=== PATIENT | male | born 1985 ===

== ENCOUNTER 2020-11-05 14:21 | Emergency (ER) | payer MEDICAID ==
[~2020-11-05] VITALS: Ht 177.8 cm; Wt 65.8 kg
[2020-11-05] MEDS ORDERED: NOVOLOG INSULIN (14:43)
[2020-11-05] MEDS ORDERED: GABAPENTIN (14:43)
[2020-11-05] MEDS ORDERED: WELLBUTRIN (14:43)
[2020-11-05] MEDS ORDERED: SUBOXONE (14:43)
[2020-11-05] MEDS ORDERED: IV NS 1000 ML 1,000 ML IV ONE (14:45)
--- NOTE | 2020-11-05 15:00 | NUR ---
Pt is agitated and yelling out loud while lying in the gurney, security called and electronic security technician at bedside for 1:1 observation.
--- NOTE | 2020-11-05 15:11 | NUR ---
Cogentin 1mg IM was ordered by but refused by patient, aware. FYI, the medication was ordered under wrong patient and canceled (see [id number]).
[2020-11-05] MEDS ORDERED: HALOPERIDOL LACTATE 5 MG/1 ML VIAL ONE (15:14)
[2020-11-05] MEDS ORDERED: HALOPERIDOL LACTATE 5 MG/1 ML VIAL IM ONE (15:15)
[2020-11-05] MEDS ORDERED: diphenhydrAMINE 50 MG/1 ML VIAL ONE (15:18)
[2020-11-05] MEDS ORDERED: BENZTROPINE MESYLATE 2 MG/2 ML AMPUL ONE (15:19)
[2020-11-05] MEDS ORDERED: INSULIN REGULAR, HUMAN 300 UNIT/3 ML VIAL IV ONE (15:30)
[2020-11-05] MEDS ORDERED: BENZTROPINE MESYLATE 2 MG/2 ML AMPUL IM ONE (15:30)
[2020-11-05 15:32] LABS: BASOPHILS % (AUTO) 0.3 % (0.0-2.0); EOSINOPHILS # (AUTO) 0.1 K/uL (0.0-0.7); EOSINOPHILS % (AUTO) 0.9 % (0.0-7.0); HEMATOCRIT 35.3 % (36.7-47.1); HEMOGLOBIN 11.9 g/dL (12.5-16.3); LYMPHOCYTES # (AUTO) 1.2 K/uL (20.0-40.0); LYMPHOCYTES % (AUTO) 13.3 % (20.5-51.5); MEAN CORPUSCULAR HEMOGLOBIN 28.8 uug (23.8-33.4); MEAN CORPUSCULAR HGB CONC 34 g/dL (32.5-36.3); MEAN CORPUSCULAR VOLUME 85.4 fL (73.0-96.2); MONOCYTES # (AUTO) 0.6 K/uL (2.0-10.0); MONOCYTES % (AUTO) 7.3 % (0.0-11.0); NEUTROPHILS % (AUTO) 78.2 % (38.5-71.5); PLATELET COUNT (AUTO) 386 K/uL (152-348); RED BLOOD CELL COUNT(AUTO) 4.14 MIL/uL (4.06-5.63); WHITE BLOOD COUNT (AUTO) 8.9 K/uL (3.6-10.2)
[2020-11-05 15:37] LABS: *BILIRUBIN,URIN NEGATIVE (NEGATIVE); *BLOOD, URINE TRACE LYSED (NEGATIVE); *CLARITY,URINE CLEAR (CLEAR); *COLOR,URINE YELLOW (YELLOW); *KETONES,URINE 1+ (NEGATIVE); *UROBILINOGEN,URINE 0.2 E.U./dl (NORMAL); LEUKOCYTE ESTERASE ,URINE NEGATIVE (NEGATIVE); NITRITE, URINE NEGATIVE (NEGATIVE); UGLUCOSE 3+ (NEGATIVE)
[2020-11-05 15:37] LABS: ETHANOL < 3 MG/DL (0-0)
[2020-11-05] MEDS ORDERED: INSULIN REGULAR, HUMAN 300 UNIT/3 ML VIAL ONE (15:38)
[2020-11-05 15:39] LABS: CREATINE KINASE, TOTAL 310 U/L (39-308)
[2020-11-05 15:42] LABS: ALANINE AMINOTRANSFERASE 72 U/L (16-63); ALKALINE PHOSPHATASE 271 U/L (50-136); ASPARTATE AMINOTRANSFERASE 38 U/L (15-37); BILIRUBIN,DIRECT 0.2 mg/dL (0.0-0.2); BILIRUBIN,TOTAL 0.5 mg/dL (0.2-1.0); CARBON DIOXIDE 24 mmol/L (21-32); CHLORIDE 95 mmol/L (98-107); POTASSIUM 3.2 mmol/L (3.5-5.1); TOTAL PROTEIN, SERUM 7.4 g/dL (6.4-8.2); UREA NITROGEN, BLOOD 10 mg/dL (7-18)
[2020-11-05 15:42] LABS: *AMPHETAMINE, URINE POSITIVE (NEGATIVE); *CANNABINOID, URINE NEGATIVE (NEGATIVE); *COCCAINE, URINE NEGATIVE (NEGATIVE); *OPIATE, URINE POSITIVE (NEGATIVE); *PHENCYCLIDINE SCREEN,URINE NEGATIVE (NEGATIVE)
[2020-11-05 15:43] LABS: GLUCOSE 535 mg/dL (74-106)
--- NOTE | 2020-11-05 15:43 | NUR ---
Pt refused ABG to be drawn. Dr. Sarah and RN is aware.
[2020-11-05 15:47] LABS: WBC,URINE 0-3 /HPF (0-3)
[2020-11-05 15:48] LABS: BACTERIA,URINE NONE SEEN /HPF (NONE SEEN)
--- NOTE | 2020-11-05 15:53 | NUR ---
Extra warm blankets (3) are on per patient's request. Comfort & safety measures maintained.
--- NOTE | 2020-11-05 16:30 | NUR ---
Patient started cursing, yelling and screaming loudly with accucheck stick. Redirection done.
--- NOTE | 2020-11-05 17:00 | NUR ---
Pt medically cleared. Per PET Team: "Pt is too young for our Jodie-Psyche unit, ask the patient if he wants to go voluntarily to [facility]. We do not have to put the patient on hold at this time" ERMD aware. Pt refuses to go voluntarily. PET Team (America) made aware per charge nurse.
--- NOTE | 2020-11-05 17:28 | NUR ---
Received telephone call from QUINTON Cross (PET team), she stated pt may be transfered to [facility] on a voluntary status. I notified her that the pt refused to be transfered on a voluntary status, the pt is expressing suicidal ideation and that is requesting for the pt to have a psych eval. I placed her call on hold to speak with and when I tried to speak to her again she was no longer on hold.
--- NOTE | 2020-11-05 17:35 | NUR ---
Tried to call America for psych eval, there was no answer so I left an urgent message for her to call back.
[2020-11-05 17:46] LABS: CREATININE 0.8 mg/dL (0.6-1.3); POTASSIUM 3.3 mmol/L (3.5-5.1)
--- NOTE | 2020-11-05 17:52 | NUR ---
America (PET ) called back: states she will be coming in an hour or so. ERMD aware. Pt is asleep and comfortable. NAD VSS RA. with LAC G20 intact saline lock monitored accordingly srx2 up, with bed at owest position sitter at bedside
--- NOTE | 2020-11-05 19:00 | NUR ---
REPORT GIVEN TO NAHEED PENDING PET (JB) FOR PSYCHE EVAL NAD VSS RA
--- NOTE | 2020-11-05 21:00 | NUR ---
America in to eval pt. Per America pt will be a voluntary transfer to [facility], she has faxed paperwork to their intake and they will call back with further information.
--- NOTE | 2020-11-05 21:30 | NUR ---
Pt sleeping with NAD noted.
--- NOTE | 2020-11-06 | NUR ---
Pt provided sandwhich and 3 juices as well as 2 cups of water.
[2020-11-06] MEDS ORDERED: INSULIN REGULAR, HUMAN 300 UNIT/3 ML VIAL SQ ONE ×3 (02:00→08:00)
[2020-11-06] MEDS ORDERED: IV NORMAL SALINE 1000 ML BAG IV ONE (02:00)
[2020-11-06] MEDS ORDERED: INSULIN REGULAR, HUMAN 300 UNIT/3 ML VIAL ONE ×2 (02:01→08:00)
[2020-11-06] MEDS ORDERED: BUPRENORPHINE HCL 2 MG TAB.SUBL SL ONE ×2 (04:15→15:57)
[2020-11-06] MEDS ORDERED: BUPRENORPHINE HCL 8 MG TAB.SUBL SL ONE ×2 (04:15→16:00)
--- NOTE | 2020-11-06 06:00 | NUR ---
Spoke with Art at [facility] intake ([phone]) regarding transfer. He stated they have been unable to verify the pt's insurance. Facesheet faxed to [phone] as requested.
--- NOTE | 2020-11-06 07:10 | NUR ---
REport given to arabella ALCANTARA.
--- NOTE | 2020-11-06 07:32 | NUR ---
sh=135md Carmelo notified.
--- NOTE | 2020-11-06 07:45 | NUR ---
3 UNITS OF REGULAR INSULIN, SQ ADMINISTERED PER ER MD LUNDBERG SS.
[2020-11-06] MEDS: INSULIN REGULAR, HUMAN 300 UNIT/3 ML VIAL SQ SCH ×3 (07:58→17:58)
--- NOTE | 2020-11-06 08:01 | NUR ---
[facility] PROVIDED FOR PT.
--- NOTE | 2020-11-06 10:20 | NUR ---
ISIDRO AMRITA INTAKE AND TALKED TO JUAN ALBERTO, STILL WAITING FOR ACH DIRECTOR PROSPECT UPDATE, CHRIS SAID THAT SHE WILL CALL WHEN READY.
--- NOTE | 2020-11-06 12:13 | NUR ---
PTCOMPLAIN OF CHRONIC LEFT HIP PAIN, NOTIFIED.
[2020-11-06] MEDS ORDERED: IBUPROFEN 600 MG TABLET PO ONE ×2 (12:15→21:15)
[2020-11-06] MEDS ORDERED: IBUPROFEN 600 MG TABLET ONE ×2 (12:16→21:11)
--- NOTE | 2020-11-06 13:00 | NUR ---
pt had ada lunch tray. pt refused insulin.
--- NOTE | 2020-11-06 18:00 | NUR ---
dinner tray provided. pt was given 6 units subq per standing order.
--- NOTE | 2020-11-06 19:04 | NUR ---
JANEEN FROM [facility] INTAKE CALLED AND SAID THAT THE PT IS ACCEPTED BY DR. PHILLIPS,PSYCH; DR. LEON, LAMP DEVELOPER, REPORT NUMBER IS [phone], ROOM NUMBER WILL BE ASSIGNED AT THE TIME OF REPORT.
--- NOTE | 2020-11-06 19:21 | NUR ---
PATIENT IS ALERT AND ORIENTED IN [facility] AT THIS TIME, NO ACUTE DISTRESS NOTED. NEEDS ATTENDED TO. AWAITING PLACEMENT.
--- NOTE | 2020-11-06 19:36 | NUR ---
CALLED [facility] NO ANSWER AT [facility] PROVIDED.
--- NOTE | 2020-11-06 19:44 | NUR ---
SPOKE WITH CHARGE NURSE AT [facility], ASKED ME TO CALL BACK IN 30 MINUTES.
--- NOTE | 2020-11-06 20:16 | NUR ---
CALLED [facility], NO ANSWER, TRANSFERRED TO NUCLEAR CARDIOLOGY TECHNOLOGIST, WAS TRASNFERRED TO ANOTHER [facility] STILL NO ANSWER, WILL CALL BACK.
--- NOTE | 2020-11-06 20:25 | NUR ---
[facility] [facility] PROVIDED.
--- NOTE | 2020-11-06 20:58 | NUR ---
Spoke with charge nurse QUINTON LACEY. NO STAFF AVAILABLE TONIGHT, PATIENT WILL NOT BE ACCEPTED TONIGHT. Addendum: 11/06/20 at 2141 by [email or web address] CHARGE NURSE AT [facility] BACILIO SAMSON RN
--- NOTE | 2020-11-06 20:59 | NUR ---
DR. FROST NOTIFIED.
--- NOTE | 2020-11-06 21:06 | NUR ---
PATIENT REFUSES INSULIN TONIGHT AND/CO LEFT HIP PAIN, DR. FROST NOTIFIED.
[2020-11-07] MEDS ORDERED: BUPRENORPHINE HCL 2 MG TAB.SUBL SL ONE (00:25)
[2020-11-07] MEDS ORDERED: BUPRENORPHINE HCL 8 MG TAB.SUBL SL ONE (00:30)
[2020-11-07] MEDS ORDERED: LORAZEPAM 2 MG/1 ML VIAL IM ONE (01:30)
[2020-11-07] MEDS ORDERED: HALOPERIDOL LACTATE 5 MG/1 ML VIAL IM ONE (01:30)
[2020-11-07] MEDS ORDERED: diphenhydrAMINE 50 MG/1 ML VIAL IM ONE (01:30)
--- NOTE | 2020-11-07 01:30 | NUR ---
Patient satrted yelling and screaming, unable to redirect. Dr. Beltran notified, and new orders received.
[2020-11-07] MEDS ORDERED: diphenhydrAMINE 50 MG/1 ML VIAL ONE (01:40)
[2020-11-07] MEDS ORDERED: LORAZEPAM 2 MG/1 ML VIAL ONE (01:40)
[2020-11-07] MEDS ORDERED: HALOPERIDOL LACTATE 5 MG/1 ML VIAL ONE (01:40)
--- NOTE | 2020-11-07 02:30 | NUR ---
Patient asleep at this time.
--- NOTE | 2020-11-07 07:05 | NUR ---
Handoff to QUINTON Yates.
--- NOTE | 2020-11-07 07:40 | NUR ---
So [facility] [place] called and accepted Pt.: Dr. Mcleod; Nurse report to: [phone] ("I.J." -- sales assistant institutional sales) [address] [place] [id number]
[2020-11-07] MEDS ORDERED: INSULIN REGULAR, HUMAN 300 UNIT/3 ML VIAL SQ ONE (08:30)
--- NOTE | 2020-11-07 08:58 | NUR ---
Called report to QUINTON Greene, at . [facility]. -- [place]; [phone] x [phone]. Going to room 629B. Request we admin 1 mg lorazapam Prior to xfer.
--- NOTE | 2020-11-07 09:08 | NUR ---
ER MD denied additional medication request. So [facility] notified.
--- NOTE | 2020-11-07 10:30 | NUR ---
Wrapped pt's foot w/elastic bandage, PMS intact afterwards. Measured and gave crutches to pt. Pt demonstrated proper use. Gave pt RX and d/c instructions, pt verbalized understanding. Addendum: 11/07/20 at 1053 by DENISE disregard note -- wrong pt, could not undo
--- NOTE | 2020-11-07 10:45 | NUR ---
Gave yarrow gatherer report and pt's chart, pt transported.
== END 2020-11-07 10:50 ==
LOC: ER 14:21
DX: R45.851 Suicidal ideations (principal); F17.210 Nicotine dependence, cigarettes, uncomplicated; E11.65 Type 2 diabetes mellitus with hyperglycemia; Z82.49 Family history of ischemic heart disease and other diseases of the circulatory system; F43.10 Post-traumatic stress disorder, unspecified; Z86.19 Personal history of other infectious and parasitic diseases; Z88.8 Allergy status to other drugs, medicaments and biological substances; Z59.0 Homelessness; Z20.822 Contact with and (suspected) exposure to COVID-19; R81 Glycosuria; E87.6 Hypokalemia; G89.28 Other chronic postprocedural pain; M25.552 Pain in left hip; Z79.4 Long term (current) use of insulin; Z79.899 Other long term (current) drug therapy; F15.90 Other stimulant use, unspecified, uncomplicated
CPT/HCPCS: 36415; 80048 ×2; 80076; 80307; 80320; 81001; 82009; 82550; 82962 ×11; 85025; 87426; 93005; 96361 ×2; 96372 ×3; 96374; 96376; 99285; J0515; J1200; J1630 ×2; J1815 ×3; J2060; A4663; G0480; J7030